=== PATIENT | male | born 1945 | race Caucasian/White ===

== ENCOUNTER 2018-12-19 07:41 | Day surgery (SDC) | payer MEDICARE ==
[~2018-12-19] VITALS: Ht 175.3 cm; Wt 84.5 kg
[2018-12-19 08:15] VITALS: BP 118/78
[2018-12-19] MEDS ORDERED: GLUC15006 PO (08:43)
[2018-12-19] MEDS ORDERED: OMEG-43 PO (08:44)
[2018-12-19] MEDS ORDERED: TURM500C4 PO (08:45)
[2018-12-19] MEDS ORDERED: LATA2.5D2 OP (08:47)
[2018-12-19] MEDS ORDERED: KETO5DRO82 OP (08:47)
[2018-12-19] MEDS ORDERED: SAW160CA3 PO (08:49)
[2018-12-19] MEDS ORDERED: SIMV40TA4 PO (08:50)
[2018-12-19] MEDS ORDERED: UBID30CA11 PO (08:51)
[2018-12-19] MEDS ORDERED: AMLO10TA4 PO (08:52)
[2018-12-19] MEDS ORDERED: MULT-933 PO (08:52)
[2018-12-19] MEDS ORDERED: VENL150T3 PO (08:56)
[2018-12-19] MEDS ORDERED: LORA10TA61 PO (08:56)
[2018-12-19] MEDS ORDERED: MEDICAL MARIJUANA (08:58)
[2018-12-19] MEDS ORDERED: CHOL50004 PO (08:59)
[2018-12-19] MEDS ORDERED: FLO0.4C PO (09:02)
[2018-12-19] MEDS ORDERED: CHON100P3 PO (09:02)
[2018-12-19 09:15] VITALS: BP 118/78
[2018-12-19] MEDS ORDERED: iohexol 300 MG/1 ML 50ml polymer ONE (09:59)
[2018-12-19] MEDS ORDERED: tPA-cathflo 2 MG/2 ml IV flush ONE (10:01)
--- NOTE | 2018-12-19 10:04 | NUR ---
IR NURSE NOTE: PT BROUGHT TO ANGIO ROOM 4, ASSISTED TO TABLE AND FLUORO IMAGE OBTAINED TO VISUALIZE CURRENT PORT. CONTRAST INJECTED TO PORT PER Abdiaziz HERNANDEZ UNDER FLUOROSCOPY. STATED PORT IS PATENT AND ORDERED TO HAVE 2MG TPA INJECTED TO PORT, AND TO LEAVE PORT ACCESSED PT IS TO GO IMMEDIATELY TO [facility]. PT TAKEN BACK TO SHORT STAY AND REPORT GIVEN TO PRIMARY RN.
[2018-12-19] MEDS ORDERED: tPA-cathflo 2 MG/2 ml IV flush IVF ONE (10:15)
[2018-12-19 10:18] VITALS: BP 113/78
[2018-12-19 10:30] VITALS: BP 112/76
== END 2018-12-19 10:40 | disposition home or self-care (01) ==
LOC: SSTAY O 07:41
PROVIDERS: ATTEND Radiology Diagnostic Radiology
DX: Z45.2 Encounter for adjustment and management of vascular access device (principal); E78.5 Hyperlipidemia, unspecified; I10 Essential (primary) hypertension; G47.30 Sleep apnea, unspecified; M19.90 Unspecified osteoarthritis, unspecified site; F32.9 Major depressive disorder, single episode, unspecified; Z98.41 Cataract extraction status, right eye; Z98.42 Cataract extraction status, left eye; Z79.899 Other long term (current) drug therapy; Z85.51 Personal history of malignant neoplasm of bladder
CPT/HCPCS: 36598; J2997; Q9967

== ENCOUNTER 2019-03-12 08:13 | Day surgery (SDC) | payer MEDICARE ==
[~2019-03-12] VITALS: Ht 175.3 cm; Wt 80.7 kg
[~2019-03-12 08:13] MED LIST: AMLO10TA4 PO; CHOL50004 PO; CHON100P3 PO; FLO0.4C PO; GLUC15006 PO; KETO5DRO82 OP; LATA2.5D2 OP; LORA10TA61 PO; MEDICAL MARIJUANA; MULT-933 PO; OMEG-43 PO; SAW160CA3 PO; SIMV40TA4 PO; TURM500C4 PO; UBID30CA11 PO; VENL150T3 PO
[2019-03-12 08:36] VITALS: BP 105/74
[2019-03-12] MEDS ORDERED: LIDOcaine 1%/PF 5ML 10 MG/ML VIAL SQ ONE (09:00)
[2019-03-12] MEDS ORDERED: ceFAZolin 1GM/D5W- ADD-VANTAGE 50 ML IV ONE (09:00)
[2019-03-12] MEDS ORDERED: CBD Gummies (09:02)
[2019-03-12] MEDS ORDERED: LIDOcaine 1%/PF 5ML 10 MG/ML VIAL ONE (09:06)
[2019-03-12] MEDS ORDERED: APIX2.5T PO (09:08)
[2019-03-12] MEDS ORDERED: [UNRECOGNIZED DRUG - OTHER] EACHEYE (09:08)
[2019-03-12] MEDS ORDERED: OXYC-134 PO (09:08)
[2019-03-12] MEDS ORDERED: fentaNYL/PF 50MCG/1 ML 2ML syringe ONE (09:38)
[2019-03-12 10:24] VITALS: BP 101/76
== END 2019-03-12 10:45 | disposition home or self-care (01) ==
LOC: SSTAY O 08:13
PROVIDERS: ATTEND Radiology Vascular & Interventional Radiology
DX: Z45.2 Encounter for adjustment and management of vascular access device (principal); Z85.51 Personal history of malignant neoplasm of bladder
CPT/HCPCS: 36590; J0690; J3010; A6213